=== PATIENT | female | born 1960 | race Caucasian/White ===

== ENCOUNTER → 2024-06-26 | Outpatient (CLI) | payer OTHER ==
--- NOTE | 2024-06-26 13:24 | HMCIMG ---
CT CORONARY CALCIFICATION SCORING: Anatomic images were reviewed. The calcium score is being generated and reported separately. This report is for the visualized anatomy only. Visualized portions of the lungs are clear. Hilar and mediastinal structures appear normal. Osseous structures are unremarkable. Impression: 1. Negative noncardiac anatomic findings. 2. The calcium score is 0 consistent with absence of calcified plaque. CT was performed with one or more following dose reduction techniques: automated exposure control, adjustment of the mA and kv according to patient's size, or use of a iterative reconstruction technique.
== END | disposition home or self-care (01) ==
LOC: RAH 10:48
PROVIDERS: ATTEND Internal Medicine Critical Care Medicine
DX: Z13.6 Encounter for screening for cardiovascular disorders (principal)
CPT/HCPCS: 75571

== ENCOUNTER → 2024-10-30 | Outpatient (CLI) | payer MEDICARE ==
[~2024-10-30] MED LIST: IOHEXOL-350 50ML VIAL IV ONE
--- NOTE | 2024-10-30 12:56 | HMCIMG ---
CT CHEST WITHOUT CONTRAST INDICATION: Chronic cough TECHNIQUE: Routine axial images using 5 mm slice thickness were acquired from the lung apices to the bases without the administration of IV contrast.Coronal and sagittal reformatted images acquired for interpretation. CT was performed with one or more of the following dose reduction techniques: Automated exposure control, adjustment of the mA and/or kV according to patient size, or use of iterative reconstruction technique. COMPARISON: None FINDINGS: 6 cm lipoma within the far superior left latissimus dorsi muscle. Several subcentimeter bilateral breast calcifications. The heart size is normal. No pericardial effusion noted. The visualized great vessels and thoracic aorta are within normal limits. The trachea and airways are patent. No evidence for peribronchial thickening or bronchiectasis. No evidence for pulmonary nodule, consolidation, cavitary lesion, or other abnormal pulmonary parenchymal opacity. Subcentimeter calcified granuloma along the posteromedial right lower lobe. Miniscule calcified granuloma along the medial right upper lobe. A few subcentimeter mediastinal lymph nodes without axillary, hilar, or mediastinal lymphadenopathy. Calcific subcarinal lymph nodes and subcentimeter right hilar calcified lymph nodes suggesting residual of chronic granulomatous disease process. Linear scarring near the left lung base. No pleural effusion or pneumothorax identified. Limited views of the upper abdomen appear normal. Broad-based posterior disc-osteophyte complex formation at the T12-L1 level contributing to mild central canal stenosis. IMPRESSION: No evidence for any acute cardiopulmonary process. Additional minor findings and pertinent negatives as reported.
== END | disposition home or self-care (01) ==
LOC: RAH 10:50
PROVIDERS: ATTEND Internal Medicine Critical Care Medicine
DX: J98.4 Other disorders of lung (principal); D17.79 Benign lipomatous neoplasm of other sites; R59.0 Localized enlarged lymph nodes; R92.1 Mammographic calcification found on diagnostic imaging of breast; M25.78 Osteophyte, vertebrae; M48.05 Spinal stenosis, thoracolumbar region; R05.3 Chronic cough
CPT/HCPCS: 71270; Q9967